=== PATIENT | female | born 1995 | race Caucasian/White ===

== ENCOUNTER 2017-04-06 13:07 | Emergency (ER) | payer MEDICAID, OTHER ==
--- NOTE | 2017-04-06 16:32 | US ---
OB limited/biophysical profile ultrasound Indication: Decreased movement Technique: Grayscale, color flow, and M-mode sonographic images of the single live intrauterine were obtained. Comparison: Pelvic/transvaginal ultrasound performed 01/11/16 Findings: There is a single live intrauterine gestation. The fetus is in cephalic position. The placenta is posterior fundal. There is no evidence of previa. There is a normal amount of amniotic fluid. The ANTHONY measures 14 cm. M-mode imaging demonstrates a heart rate to be 140.1 beats per min. Cervix length measures approximately 2.3 cm. Fetus has a composite sonographic age of 36 weeks 2 days. This calculation is based on the biparietal diameter, head circumference, abdominal circumference, and femur length. movements 2/2 breathing 2/2 tone 2/2 Amniotic fluid 2/2 Total score impression: 8/8 Impression: Biophysical profile of 8 out of 8. Single live intrauterine in cephalic position with a heart rate of 140.1 beats per min. Cervix length measures approximately 2.3 cm. The study was performed for the emergent evaluation of decreased movement, and the whole anatomic survey of the fetus was not performed. This should be performed on an outpatient elective basis as clinically warranted.
--- NOTE | 2017-04-06 16:51 | OBHP ---
Datetime: 04/06/2017 16:45 IP Adm Impression: Term, intrauterine IP Adm Impression Other: nst reactive; bpp 8 IP Admit Plan: Discharge home Admit Comment, IP Provider: chief complaint-decreased movement; variables on nst in office 21 y/o female sent from office for evlauation.Patient reported decreased movement and had ns t done in office and ad few varaibales on it Patient denies any vaginal bleeding or loss of fluid course uncomplicated PMH denies PSH denies OBGYH HX S Social hx denies tobacco,alcohol or illicit drug use Exam see exam section Ultrasound bpp/06/06 nst reactive A/P Patient here for nst and bpp due to varaibles noted on nst in office.BPP 06/06; NST reactive -patient discharged home -return for repeat nst in 3 days -patient given labor, prom and decreased movement precautions discussed with dr yao Pelvic Type - PN: Adequate Extremities - PN: Normal Abdomen - PN: Normal Back - PN: Normal Lungs - PN: Normal Heart - PN: Normal Neurologic - PN: Normal General - PN: Normal Presentation-Admit: Vertex Gestation - Est Wks by US: 38.4 IP Hx Assessment: The History has been Reviewed and is Current EGA AdmitDate IP: 38.4 Vital Signs Provider: Reviewed IP Chief Complaint: evaluation FHR Category Provider Fetus A: Category I Genitourinary Exam: Normal DTRs - PN: Normal
== END 2017-04-06 16:55 | disposition home or self-care (01) ==
LOC: C.EROB 13:07
DX: O36.8130 Decreased fetal movements, third trimester, not applicable or unspecified (principal); Z3A.38 38 weeks gestation of pregnancy